=== PATIENT | female | born 1985 | race Caucasian/White ===

== ENCOUNTER 2022-05-25 10:04 | Day surgery (SDC) | payer BC ==
[~2022-05-25] VITALS: Ht 154.9 cm; Wt 99.8 kg
[2022-05-25 11:01] LABS: HCG,QUAL RESULT NEGATIVE (NEGATIVE)
[2022-05-25] MEDS ORDERED: METOCLOPRAMIDE HCL 10 MG/2 ML VIAL IVP PRN (14:00)
[2022-05-25] MEDS ORDERED: ONDANSETRON HCL 4 MG/2 ML VIAL IVP PRN (14:00)
[2022-05-25] MEDS ORDERED: MORPHINE 4 MG INJ. 4 MG/ML VIAL IVP PRN ×3 (14:00)
[2022-05-25] MEDS ORDERED: MUPIROCIN 2% TOPICAL OINTMENT 22 GM ONE (14:37)
[2022-05-25] MEDS ORDERED: PROPOFOL 200MG/ 20ML VIAL (DIPRIVAN) IV ONE (14:37)
[2022-05-25] MEDS ORDERED: OXYMETAZOLINE HCL 0.05% NASAL SPRAY NS ONE (14:37)
[2022-05-25] MEDS ORDERED: DEXAMETHASONE SOD PHOSPHATE 4 MG/ML VIAL ONE (14:37)
[2022-05-25] MEDS ORDERED: GLYCOPYRROLATE 0.2 MG/ML VIAL ONE (14:37)
[2022-05-25] MEDS ORDERED: MIDAZOLAM HCL 5 MG/ML VIAL (VERSED) IV ONE (14:37)
[2022-05-25] MEDS ORDERED: SEVOFLURANE 15 MIN GAS INH ONE (14:37)
[2022-05-25] MEDS ORDERED: fentaNYL CITRATE/PF 100 MCG/2 ML AMP ONE (14:37)
[2022-05-25] MEDS ORDERED: LR 1,000 ML IV.SOLN IV ONE (14:37)
[2022-05-25] MEDS ORDERED: NS IRRIG SOLN 1000 ML IR ONE (14:37)
[2022-05-25] MEDS ORDERED: ONDANSETRON HCL 4 MG/2 ML VIAL ONE ×2 (14:37→16:12)
[2022-05-25] MEDS ORDERED: LIDOCAINE/EPI 1% 1:100000 20 ML VIAL ONE (14:37)
[2022-05-25] MEDS ORDERED: ePHEDrine sulfate 50 MG/ML VIAL ONE (14:37)
[2022-05-25] MEDS ORDERED: ROCURONIUM BROMIDE 10 MG/ML (ZEMURON) ONE (14:37)
[2022-05-25] MEDS ORDERED: NS 1000 ML IV.SOLN IV ONE (14:37)
[2022-05-25] MEDS ORDERED: WATER FOR IRRIGATION,STERILE 1,000 ML IRRIG.SOLN IR ONE (14:37)
[2022-05-25] MEDS ORDERED: MORPHINE SULFATE 10 MG/ML VIAL ONE (16:29)
[2022-05-25 19:22] VITALS: BP_SYST 140
== END 2022-05-25 18:06 | disposition home or self-care (01) ==
LOC: SDS 10:04
PROVIDERS: ATTEND Otolaryngology
DX: J34.2 Deviated nasal septum (principal); D38.5 Neoplasm of uncertain behavior of other respiratory organs; J34.3 Hypertrophy of nasal turbinates; N92.0 Excessive and frequent menstruation with regular cycle; Z79.899 Other long term (current) drug therapy; Z20.822 Contact with and (suspected) exposure to COVID-19
CPT/HCPCS: 31298; 30140; 30520; 31255; 31256; 84703; 36415; 88305; 87426; J1100; J3490; J2250; J2405; J2704; J3010; J2270; J7120; J7030; C1726; 88311